=== PATIENT | female | born 1970 | race Caucasian/White ===

== ENCOUNTER 2017-02-13 21:57 | Emergency (ER) | payer OTHER ==
[~2017-02-13] VITALS: Ht 160 cm; Wt 52.2 kg
--- NOTE | 2017-02-13 22:02 | ED CARDIAC/CP/PALPITATIONS ---
History of Present Illness General Chief Complaint: Dyspnea (COPD, CHF, Other) Stated Complaint: BIBA FOR DIFFICULTY BREATHING Source: patient Exam Limitations: no limitations Vital Signs & Intake/Output Vital Signs & Intake/Output Vital Signs Date Time Temp Pulse Resp B/P B/P Pulse O2 O2 Flow FiO2 Mean Ox Delivery Rate 02/135 100 Nasal 2.0L Cannula 02/13 2200 98.7 97 18 157/82 100 Room Air ED Intake and Output 02/14 0000 02/13 1200 Intake Total Output Total Balance Patient 115 lb Weight Weight Reported by Patient Measurement Method Allergies Coded Allergies: sulfamethoxazole (From BACTRIM) (Intermediate, HIVES 02/13/17) trimethoprim (From BACTRIM) (Intermediate, HIVES 02/13/17) Reconcile Medications Albuterol Sulfate (Proventil Hfa) 90 MCG HFA.AER.AD 2 PUF INH Q4 sob Alprazolam (Xanax) 1 MG TABLET 1 TAB PO TIDPRN anxiety Triage Nurses Notes Reviewed? yes Onset: Abrupt Duration: day(s): (2), constant, continues in ED Timing: recent history Quality/Severity: pressure, tightness Location: central Radiation: back Activities at Onset: none : No Patient currently breastfeeds: No HPI: 46-year-old female comes into emergency room with complaints of chest tightness and shortness of breath and dizziness and numbness and tingling in her hands feet bilaterally. Patient reports that she feels like she cannot catch her breath. Symptoms have been going on for the past 2 days. Denies any prior medical problems. Similar symptoms back in 2008 which she was told it was her allergies/asthma. Denies any vomiting. Denies any other associated symptoms (MONTEZ MORAN) Past History Travel History Traveled to [place] past 21 day No Medical History Any Pertinent Medical History? see below for history Neurological: NONE EENT: NONE Cardiovascular: NONE Respiratory: NONE Gastrointestinal: NONE Hepatic: NONE Renal: NONE Musculoskeletal: NONE Psychiatric: NONE Endocrine: NONE Surgical History Surgical History: non-contributory Psychosocial History What is your primary language [place] Tobacco Use: Never used ETOH Use: occasional use Illicit Drug Use: denies illicit drug use Family History Hx Contributory? No (MONTEZ MORAN) Review of Systems Review of Systems Constitutional: Reports: no symptoms. EENTM: Reports: no symptoms. Respiratory: Reports: see HPI. Cardiovascular: Reports: see HPI. GI: Reports: no symptoms. Genitourinary: Reports: no symptoms. Musculoskeletal: Reports: no symptoms. Skin: Reports: no symptoms. Neurological/Psychological: Reports: no symptoms. Hematologic/Endocrine: Reports: no symptoms. Immunologic/Allergic: Reports: no symptoms. All Other Systems: Reviewed and Negative (MONTEZ MORAN) Physical Exam Physical Exam General Appearance: well developed/nourished, alert, anxious, mild distress Head: atraumatic, normal appearance Eyes: Bilateral: normal appearance, EOMI. Ears, Nose, Throat: normal pharynx, normal ENT inspection, hearing grossly normal Neck: normal inspection Respiratory: normal breath sounds, no respiratory distress Cardiovascular: regular rate/rhythm, tachycardia Back: normal inspection Extremities: normal inspection Neurologic/Psych: awake, alert, oriented x 3, normal gait Skin: intact, normal color Core Measures ACS in differential dx? Yes Severe Sepsis Present: No Septic Shock Present: No (MONTEZ MORAN) Progress Differential Diagnosis: AMI, aortic dissection, atrial fibrillation, cholecystitis, costochondritis, hyperkalemia, hypovolemia, hyperthyroid, hyperventilation, intracranial hemorrhage, musculoskeletal pain, myocarditis, pancreatitis, pericarditis, pneumonia, pneumothorax, PSVT, pulmonary embolism, respiratory failure, rib fracture, sepsis, unstable angina, V-fib/V-Tach Plan of Care: Orders Procedure Date/time Status TROPONIN LEVEL 02/14 0230 Active EKG 02/14 0230 Active Add-on Test (ER Only) 02/14 2304 Active TROPONIN LEVEL 02/14 2220 Complete Telemetry/Burn Out Scarfing Operator 02/13 2201 Active D-DIMER 02/13 2201 Complete COMPREHENSIVE METABOLIC PANEL 02/13 2201 Complete CBC WITHOUT DIFFERENTIAL 02/13 2201 Complete EKG 02/13 2201 Active Laboratory Tests 02/14/17 0238: Troponin I Pending 02/13/172219: Anion Gap 13, Estimated GFR > 60, BUN/Creatinine Ratio 18.8, Glucose 114 H, Calcium 9.9, Total Bilirubin 1.0, AST 24, ALT 26, Alkaline Phosphatase 55, Troponin I < 0.01, Total Protein 7.3, Albumin 4.6, Globulin 2.7, Albumin/ Globulin Ratio 1.7, D-Dimer High Sensitivty < 200, CBC w Diff NO MAN DIFF REQ, RBC 4.36, MCV 88.2, MCH 30.2, RDW 13.1, MPV 7.8, Gran % 77.6 H, Lymphocytes % 15.4 L, Monocytes % 6.0, Eosinophils % 0.5, Basophils % 0.5, Absolute Granulocytes 7.6 H, Absolute Lymphocytes 1.5, Absolute Monocytes 0.6, Absolute Eosinophils 0, Absolute Basophils 0.1, PUBS MCHC 34.2 Diagnostic Imaging: Viewed by Me: Radiology Read. Discussed w/RAD: Radiology Read. Radiology Impression: PATIENT: MALIKA SUMNER PRESENT AGE: 46 PATIENT ACCOUNT NO: [id number] : 71 LOCATION: [facility] ORDERING PHYSICIAN: MONTEZ RAMOS SERVICE DATE: 02/13/17 EXAM TYPE : RAD - XRY-PORTABLE CHEST XRAY EXAMINATION: XR PORTABLE CHEST CLINICAL INFORMATION: Chest pain. COMPARISON: None TECHNIQUE: Portable frontal view of the chest was obtained. FINDINGS: The cardiomediastinal silhouette is unremarkable. The lungs and pleural spaces appear clear without evidence of congestion, consolidation, or significant appearing effusion or atelectasis. There is no evidence of pneumothorax or pulmonary edema. Included osseous structures appear largely unremarkable. IMPRESSION: No acute process identified. DICTATED BY: HELEN COLEMAN MD DATE/TIME DICTATED:02/13/172247 SOUND SYSTEM INSTALLER:[place] DATE/TIME TRANSCRIBED:02/13/172247 CONFIDENTIAL, DO NOT COPY WITHOUT APPROPRIATE AUTHORIZATION. <Electronically signed in Other Vendor System> SIGNED BY: HELEN COLEMAN MD 02/13/172252 Initial ED EKG: normal intervals, normal p-waves, normal QRS complex, normal sinus rhythm, rate (99), nonspecific ST T wave chg Hand-Off Endorsed To: VALENCIA TEJADA MD Endorsed Time: 104 Pending: EKG, labs Comments: Patient had felt significantly better upon reevaluation after Xanax. She was scared to go home. Low suspicion for any type of cardiac event. I expect the patient will keep her here to further observe her and do a second EKG and second troponin test on her. Patient was signed out to dr Dr. Tejada. (RAJNI RAMOS,MONTEZ) Repeat EKG: unchanged Rhythm Strip: normal sinus rhythm (TERRELL PEREZ,VALENCIA Shanks) Departure Departure Disposition: HOME OR SELF CARE Condition: Stable Clinical Impression Primary Impression: Atypical chest pain Secondary Impressions: Anxiety Referrals: RUBEN PEREZ,JACKIE LEAVITT MD,Alexis LANGE MD PhD,TIFFANIE Moreira Additional Instructions: Follow-up with primary care doctor. Return if any concerns worsening symptoms. Follow-up with numerical control programmer and magnetic resonance imaging director provided. Please go over all results of today's visit with your primary care doctor. Contact your primary care doctor to let them know you were here in the emergency room. There may be nonspecific findings which may not be related to your visit today here in the emergency room but may require further evaluation and chronic monitoring by your primary care doctor. If you had a laceration today the chance of foreign body always remains. You should follow-up with your primary care doctor for recheck in 3-5 days for a wound check. If you had an x-ray done there is a chance that a fracture could have been missed on initial read and you should follow-up with your primary care doctor for repeat x-rays if symptoms persist. If your blood pressure was elevated here in the emergency room please have rechecked by her primary care doctor within the next 48 hours by your primary care doctor. If you were prescribed a narcotic here in the emergency room or any type of controlled substances you're not allowed to drive while taking this medication or operate any type of heavy machinery. Narcotics can make you feel lightheaded dizziness nausea and can cause constipation. You may need to crab picker a stool softener. Thank you for choosing [facility] emergency room. Please return to the emergency room immediately if you have any other concerns worsening of symptoms. Departure Forms: Customer Survey General Discharge Information Prescriptions: Current Visit Scripts Alprazolam (Xanax) 1 TAB PO TIDPRN #10 TAB Albuterol Sulfate (Proventil Hfa) 2 PUF INH Q4 #1 INHAL (MONTEZ MORAN) PA/SAP HANA DEVELOPER Co-Sign Statement Statement: ED Attending supervision documentation- [X] I saw and evaluated the patient. I have also reviewed all the pertinent lab results and diagnostic results. I agree with the findings and the plan of care as documented in the PA's/SAP HANA DEVELOPER's documentation. [X] I have reviewed the ED Record and agree with the PA's/SAP HANA DEVELOPER's documentation. [] Additions or exceptions (if any) to the PAs/SAP HANA DEVELOPER's note and plan are summarized below: [] (TERRELL PEREZ,VALENCIA Shanks) Critical Care Note Critical Care Note Critical Care Time: non-applicable (MONTEZ MORAN)
[2017-02-13 22:27] LABS: ABSOLUTE BASOPHIL COUNT 0.1 /CUMM (0.0-0.2); ABSOLUTE EOSINOPHIL COUNT 0 /CUMM (0.0-0.7); ABSOLUTE GRANULOCYTE CT 7.6 /CUMM (1.4-6.5); ABSOLUTE LYMPH COUNT 1.5 /CUMM (1.2-3.4); ABSOLUTE MONOCYTE COUNT 0.6 /CUMM (0.10-0.60); BASOPHIL % 0.5 % (0.0-2.0); EOSINOPHIL % 0.5 % (0-5); GRANULOCYTE % 77.6 % (42.2-75.2); HEMATOCRIT 38.5 % (37-47); MEAN CORPUSCULAR HGB 30.2 PG (27.0-31.0); MEAN CORPUSCULAR HGB CONC 34.2 G/DL (33.0-37.0); MEAN CORPUSCULAR VOLUME 88.2 FL (81.0-99.0); MEAN PLATELET VOLUME 7.8 FL (7.4-10.4); PLATELET COUNT 298 /CUMM (130-400); RBC DISTRIBUTION WIDTH 13.1 % (11.5-14.5); RED BLOOD CELL CT 4.36 /CUMM (4.20-5.40); WHITE BLOOD CELL COUNT 9.8 /CUMM (4.8-10.8)
--- NOTE | 2017-02-13 22:53 | RADIOLOGY REPORT ---
EXAMINATION: XR PORTABLE CHEST CLINICAL INFORMATION: Chest pain. COMPARISON: None TECHNIQUE: Portable frontal view of the chest was obtained. FINDINGS: The cardiomediastinal silhouette is unremarkable. The lungs and pleural spaces appear clear without evidence of congestion, consolidation, or significant appearing effusion or atelectasis. There is no evidence of pneumothorax or pulmonary edema. Included osseous structures appear largely unremarkable. IMPRESSION: No acute process identified.
[2017-02-14] MEDS ORDERED: PROVENTIL HFA6.7 GM INH (00:45)
[2017-02-14] MEDS ORDERED: XANAX1 M1 PO (00:45)
[2017-02-14 03:21] VITALS: BP 151/80
== END 2017-02-14 03:27 ==
LOC: ERH 21:57
PROVIDERS: Physician Assistant Medical
DX: R07.89 Other chest pain (principal); F41.9 Anxiety disorder, unspecified
CPT/HCPCS: 93005; 93010; 96374; J3101